=== PATIENT | male | born 1990 | race Caucasian/White ===

== ENCOUNTER 2025-01-04 12:04 | Emergency (ER) | payer OTHER ==
[~2025-01-04] VITALS: Ht 175.3 cm; Wt 67.6 kg
[2025-01-04] MEDS ORDERED: PREDNISONE20 MG PO (13:12)
[2025-01-04 13:15] VITALS: BP 123/90
[2025-01-04] MEDS ORDERED: predniSONE 20 MG TAB PO ONE (13:15)
== END 2025-01-04 13:15 | disposition home or self-care (01) ==
LOC: ED 12:04
DX: R20.2 Paresthesia of skin (principal)
CPT/HCPCS: 99283; J7512